=== PATIENT | male | born 1930 | race Caucasian/White ===

== ENCOUNTER 2017-05-28 14:52 | Inpatient (IN) | payer MEDICARE, OTHER ==
[2017-05-28] MEDS ORDERED: Magnesium Hydroxide 400 MG/5 ML Susp 30 ML Cup PO PRN (15:12)
[2017-05-28] MEDS ORDERED: Temazepam 15 MG Cap PO PRN (15:12)
[2017-05-28] MEDS ORDERED: Ondansetron 4 MG/2 ML SDV IV PRN (15:12)
[2017-05-28] MEDS ORDERED: Enoxaparin 30 MG/0.3 ML Syringe SUBCUT SCH (15:15)
[2017-05-28] MEDS ORDERED: LEVALBUTEROL INH PRN (15:45)
[2017-05-28 15:56] LABS: CHLORIDE,CL 102 mEq/L (98-106); SODIUM,NA 139 mEq/L (136-145)
[2017-05-28] MEDS: Sodium Chloride 0.9% 1,000 ML IV SCH ×2 (16:47→23:00)
[2017-05-28] MEDS: LATANOPROST 0.005% EYEBOTH SCH (19:37)
[2017-05-28] MEDS: cefTRIAXone 1 GM Vial IVPUSH SCH (19:38)
[2017-05-28] MEDS ORDERED: Sodium Chloride 0.9% 1,000 ML ONE (23:14)
[2017-05-29] MEDS ORDERED: AMLODIPINE 5 MG PO SCH (08:00)
[2017-05-29] MEDS ORDERED: ASPIRIN 81 MG TAB **PTOM PO SCH (08:00)
[2017-05-29] MEDS ORDERED: ATENOLOL 25 MG PO SCH (08:00)
[2017-05-29] MEDS ORDERED: LOSARTAN 50 MG PO SCH (08:00)
--- NOTE | 2017-05-29 08:53 | PCM.PN ---
- General Info Date of Service: 05/29/17 Admission Dx/Problem (Free Text): Acute Renal Insufficiency Bladder Outlet Obstruction Functional Status: Reports: Pain Controlled, Tolerating Diet, Ambulating, New Symptoms (gross hematuria) - Review of Systems General: Reports: Weakness, Fatigue. Denies: Fever, Chills HEENT: Reports: No Symptoms Pulmonary: Denies: Shortness of Breath, Pleuritic Chest Pain, Cough, Sputum, Hemoptysis, Wheezing Cardiovascular: Reports: Dyspnea on Exertion, Edema. Denies: Chest Pain, Lightheadedness Gastrointestinal: Reports: Abdominal Pain (RLQ), Decreased Appetite. Denies: Constipation, Diarrhea, Nausea, Vomiting Genitourinary: Reports: Hematuria, Retention Neurological: Reports: No Symptoms Psychiatric: Reports: No Symptoms - Patient Data Vitals - Most Recent: Last Vital Signs Temp 98.4 F 05/29/17 08:00 Pulse 59 L 05/29/17 08:00 Resp 20 05/29/17 08:00 BP 122/56 L 05/29/17 08:00 Pulse Ox 93 L 05/29/17 08:00 Weight - Most Recent: 171 lb 1.6 oz I&O - Last 24 Hours: Intake & Output 05/28/17 05/29/17 05/29/17 22:59 06:59 14:59 Intake Total 933 Balance 933 Lab Results Last 24 Hours: Laboratory Results - last 24 hr 05/28/17 05/28/17 05/28/17 Range/Units 15:12 15:30 15:30 WBC 23.4 H* (5.0-10.0) 10^3/uL RBC 3.89 L (4.50-6.00) 10^6/uL Hgb 12.0 L (14.0-18.0) g/dL Hct 36.5 L (40.0-54.0) % MCV 93.8 (82.0-94.0) fL MCH 30.8 (27.0-32.0) pg MCHC 32.9 L (33.0-38.0) g/dL RDW Coeff of Yeni 14.9 (11.0-15.0) % Plt Count 77 L (150-400) 10^3/uL Neut % (Auto) 35.9 (35-85) % Lymph % (Auto) 60.9 H (10-55) % Kane % (Auto) 3.2 (0-16) % Eos % (Auto) 0 (0-5) % Baso % (Auto) 0 (0-3) % Neut # (Auto) 8.39 H (1.80-7.00) 10^3/uL Lymph # (Auto) 14.24 H (1.00-4.80) 10^3/uL Kane # (Auto) 0.75 (0.00-0.80) 10^3/uL Eos # (Auto) 0.00 (0.00-0.45) 10^3/uL Baso # (Auto) 0.01 10^3/uL D-Dimer, Quantitative 68.4 H (0.00-0.50) Sodium 139 (136-145) mEq/L Potassium 3.5 (3.5-5.0) mEq/L Chloride 102 (98-106) mEq/L Carbon Dioxide 24 (21-32) mmol/L BUN 70 H D (7-18) mg/dL Creatinine 3.5 H* D (0.7-1.3) mg/dL Est Cr Clr Drug Dosing TNP Estimated GFR (MDRD) 17 L (>=60) mL/min Glucose 175 H D (75-99) mg/dL Calcium 9.1 (8.4-10.1) mg/dL Magnesium 2.6 H (1.8-2.4) mg/dL Total Bilirubin 1.1 H (0.0-1.0) mg/dL AST 32 (15-37) U/L ALT 21 (12-78) U/L Alkaline Phosphatase 93 (46-116) U/L Troponin I 0.024 (0.00-0.06) ng/mL C-Reactive Protein 16.1 H (0.2-0.8) mg/dL NT-Pro-B Natriuret Pep 3546 H (0-1000) pg/mL Total Protein 6.3 L (6.4-8.2) g/dL Albumin 3.3 L (3.4-5.0) g/dL TSH, Ultra Sensitive 1.02 (0.36-5.60) uIU/mL Urine Color (YELLOW) Urine Appearance (CLEAR) Urine pH (4.5-8.0) Ur Specific [place] (1.003-1.020) Urine Protein (NEGATIVE) mg/dL Urine Glucose (UA) (NEGATIVE) mg/dL Urine Ketones (NEGATIVE) mg/dL Urine Occult Blood (NEGATIVE) Urine Nitrite (NEGATIVE) Urine Bilirubin (NEGATIVE) Urine Urobilinogen (0.2-1.0) EU/dL Ur Leukocyte Esterase (NEGATIVE) Urine RBC (0-5) /HPF Urine WBC (0-5) /HPF Amorphous Sediment (NOT SEEN) /HPF Urine Mucus (NOT SEEN) /HPF 05/28/17 05/29/17 05/29/17 Range/Units 17:41 06:00 07:00 WBC 15.9 H (5.0-10.0) 10^3/uL RBC 3.39 L (4.50-6.00) 10^6/uL Hgb 10.4 L (14.0-18.0) g/dL Hct 32.1 L (40.0-54.0) % MCV 94.7 H (82.0-94.0) fL MCH 30.7 (27.0-32.0) pg MCHC 32.4 L (33.0-38.0) g/dL RDW Coeff of Yeni 14.8 (11.0-15.0) % Plt Count 71 L (150-400) 10^3/uL Neut % (Auto) 39.6 (35-85) % Lymph % (Auto) 57.1 H (10-55) % Kane % (Auto) 3.3 (0-16) % Eos % (Auto) 0 (0-5) % Baso % (Auto) 0 (0-3) % Neut # (Auto) 6.28 (1.80-7.00) 10^3/uL Lymph # (Auto) 9.05 H (1.00-4.80) 10^3/uL Kane # (Auto) 0.53 (0.00-0.80) 10^3/uL Eos # (Auto) 0.00 (0.00-0.45) 10^3/uL Baso # (Auto) 0.00 10^3/uL D-Dimer, Quantitative (0.00-0.50) Sodium 140 (136-145) mEq/L Potassium 3.1 L (3.5-5.0) mEq/L Chloride 106 (98-106) mEq/L Carbon Dioxide 23 (21-32) mmol/L BUN 72 H* (7-18) mg/dL Creatinine 3.2 H* (0.7-1.3) mg/dL Est Cr Clr Drug Dosing 14.92 Estimated GFR (MDRD) 18 L (>=60) mL/min Glucose 139 H (75-99) mg/dL Calcium 8.2 L (8.4-10.1) mg/dL Magnesium (1.8-2.4) mg/dL Total Bilirubin (0.0-1.0) mg/dL AST (15-37) U/L ALT (12-78) U/L Alkaline Phosphatase (46-116) U/L Troponin I (0.00-0.06) ng/mL C-Reactive Protein 15.4 H (0.2-0.8) mg/dL NT-Pro-B Natriuret Pep (0-1000) pg/mL Total Protein (6.4-8.2) g/dL Albumin (3.4-5.0) g/dL TSH, Ultra Sensitive (0.36-5.60) uIU/mL Urine Color Dark yellow (YELLOW) Urine Appearance Clear (CLEAR) Urine pH 5.0 (4.5-8.0) Ur Specific [place] 1.020 (1.003-1.020) Urine Protein Trace H (NEGATIVE) mg/dL Urine Glucose (UA) Negative (NEGATIVE) mg/dL Urine Ketones Negative (NEGATIVE) mg/dL Urine Occult Blood Large H (NEGATIVE) Urine Nitrite Negative (NEGATIVE) Urine Bilirubin Negative (NEGATIVE) Urine Urobilinogen 0.2 (0.2-1.0) EU/dL Ur Leukocyte Esterase Negative (NEGATIVE) Urine RBC 30-40 H (0-5) /HPF Urine WBC Not seen (0-5) /HPF Amorphous Sediment Few H (NOT SEEN) /HPF Urine Mucus Few H (NOT SEEN) /HPF Med Orders - Current: Current Medications Acetaminophen (Tylenol) 650 mg PO Q4H PRN PRN Reason: Pain (Mild 1-3)/fever Amlodipine Besylate (Norvasc) 5 mg PO DAILY [facility] Aspirin (Halfprin) 81 mg PO DAILY ÁNGELA Atenolol (Tenormin) 25 mg PO DAILY [facility] Ceftriaxone Sodium (Rocephin) 1 gm IVPUSH Q24H ÁNGELA Last Admin: 05/28/17 19:38 Dose: 1 gm Potassium Chloride/Sodium Chloride (1/2 Ns With 20 Meq Kcl) 1,000 mls @ 100 mls /hr IV ASDIRECTED [facility] Losartan Potassium (Cozaar) 50 mg PO DAILY [facility] Magnesium Hydroxide (Milk Of Magnesia) 30 ml PO Q12H PRN PRN Reason: Constipation Ondansetron HCl (Zofran) 4 mg IV Q6H PRN PRN Reason: Nausea/Vomiting Latanoprost Opht 0. (005% Laurie Ptom) 0 each EYEBOTH BEDTIME [facility] Last Admin: 05/28/17 19:37 Dose: 1 each Levalbuterol 45 Mcg/ (Act Ptom) 2 each INH Q4H PRN PRN Reason: SHORTNESS OF BREATH Temazepam (Restoril) 15 mg PO BEDTIME PRN PRN Reason: Sleep Discontinued Medications Enoxaparin Sodium (Lovenox) 30 mg SUBCUT Q24H [facility] Last Admin: 05/28/17 19:23 Dose: Not Given Sodium Chloride (Normal Saline) 1,000 mls @ 150 mls/hr IV STAT [facility] Stop: 05/29/17 22:54 Last Admin: 05/28/17 23:00 Dose: 150 mls/hr Sodium Chloride (Normal Saline) Confirm Administered Dose 1,000 mls @ as directed .ROUTE .STK-MED ONE Stop: 05/28/17 23:15 Last Admin: 05/28/17 23:42 Dose: Not Given Amlodipine 5 Mg Tab (Ptom) 1 each PO DAILY [facility] Aspirin 81 Mg Tab (Ptom) 1 each PO DAILY [facility] Atenolol 25 Mg Tab * (*Ptom) 1 each PO DAILY [facility] Losartan 50 Mg Tab * (*Ptom) 50 each PO DAILY ÁNGELA - Exam Quality Assessment: Urine Catheter General: Alert, Oriented, No Acute Distress Neck: Supple Lungs: Clear to Auscultation, Normal Respiratory Effort Cardiovascular: Regular Rate, Regular Rhythm GI/Abdominal Exam: Normal Bowel Sounds, Soft, Tender (bilateral lower quadrants) . No: Guarding, Rigid, Rebound Back Exam: Normal Inspection, Full Range of Motion. No: CVA Tenderness (L), CVA Tenderness (R) Extremities: Normal Range of Motion, Non-Tender, Normal Capillary Refill, Pedal Edema Skin: Warm, Dry, Intact Neurological: No New Focal Deficit Psy/Mental Status: Alert, Normal Affect, Normal Mood - Problem List & Annotations (1) Bladder outlet obstruction SNOMED Code(s): 776035903 Code(s): N32.0 - BLADDER-NECK OBSTRUCTION Status: Acute Current Visit: Yes (2) Generalized weakness SNOMED Code(s): 03542315 Code(s): R53.1 - WEAKNESS Status: Acute Current Visit: Yes (3) Acute renal insufficiency SNOMED Code(s): 565247131 Code(s): N28.9 - DISORDER OF KIDNEY AND URETER, UNSPECIFIED Status: Acute Current Visit: Yes (4) Gross hematuria SNOMED Code(s): 041270587 Code(s): R31.0 - GROSS HEMATURIA Status: Acute Current Visit: Yes (5) Palliative care patient SNOMED Code(s): 147035781 Code(s): Z51.5 - ENCOUNTER FOR PALLIATIVE CARE Status: Acute Current Visit: Yes - Problem List Review Problem List Initiated/Reviewed/Updated: Yes - My Orders Last 24 Hours: My Active Orders 05/28/17 15:12 Oxygen Therapy [RC] .PRN Up With Assistance [RC] .PRN Vital Signs [RC] 0000,0400,0800,1200,1600,2000 PT Evaluation and Treatment [CONS] Routine Chest 2V [CR] Routine Acetaminophen [Tylenol] 650 mg PO Q4H PRN Magnesium Hydroxide [Milk of Magnesia] 30 ml PO Q12H PRN Ondansetron [Zofran] 4 mg IV Q6H PRN Temazepam [Restoril] 15 mg PO BEDTIME PRN Resuscitation Status Routine 05/28/17 15:15 Intake and Output [RC] .PRN 05/28/17 15:45 Patient's Own Medication [Ptom] 2 each INH Q4H PRN 05/28/17 16:11 Patient Status [ADT] Routine 05/28/17 19:00 cefTRIAXone [Rocephin] 1 gm IVPUSH Q24H 05/28/17 20:00 Patient's Own Medication [Ptom] 0 each EYEBOTH BEDTIME 05/28/17 Dinner Regular Diet [DIET] 05/29/17 08:00 Renal Comp [US] Stat Aspirin [Halfprin] 81 mg PO DAILY Atenolol [Tenormin] 25 mg PO DAILY Losartan [Cozaar] 50 mg PO DAILY amLODIPine [Norvasc] 5 mg PO DAILY 05/29/17 08:26 Abdomen Comp [US] Stat 05/29/17 08:30 Sodium Chloride 0.45% with KCl [1/2 NS with 20 mEq KCl] 1,000 ml IV ASDIRECTED 05/30/17 06:00 BMP [BASIC METABOLIC PANEL,BMP] [CHEM] DAILY C-REACTIVE PROTEIN [CHEM] DAILY CBC WITH AUTO DIFF [HEME] DAILY 05/31/17 06:00 BMP [BASIC METABOLIC PANEL,BMP] [CHEM] DAILY C-REACTIVE PROTEIN [CHEM] DAILY CBC WITH AUTO DIFF [HEME] DAILY 06/01/17 06:00 BMP [BASIC METABOLIC PANEL,BMP] [CHEM] DAILY C-REACTIVE PROTEIN [CHEM] DAILY CBC WITH AUTO DIFF [HEME] DAILY - Plan Plan:: 05/29/2017 Patient had some issues with urinary retention overnight. Howard catheter was placed, with return of 3,100 mL of urine. Throughout the night patient had increased gross hematuria. I suspect this is related to distension of his bladder. Did have some RBCs on UA, however this was a catheterized sample. Creatinine down to 3.2 from 3.5 yesterday. K decreased to 3.1 today. Will switch IV fluids to 0.45% NS with 20 meQ K and decrease rate to 100 mL/hr. WBC decreased from 23.4 to 15.9. Was started on Rocephin yesterday for suspected UTI. However, when urine sample was able to be obtained via straight cath, UA was negative. Patient had significantly elevated D-Dimer (64.4), however we are unable to do Chest CTA to rule out PE due to elevated creatinine. Patient is not short of breath and has no chest pain. Will get complete abdominal US to rule out urinary obstruction/hydronephrosis, appendicitis, and cholecystitis. Patient does have slight RLQ abdominal tenderness. Unable to get adequate visualization with US, so CT abd/pelvis was ordered showing pooled blood vs. mass in right renal pelvis, as well as bladder diverticula and large stone. Patient's pro-BNP elevated to 3,546. He also has a heart murmur. Will get echo today as well. Discharge inappropriate at this time.
--- NOTE | 2017-05-29 11:00 | PN ---
DATE: 05/29/2017 Rolando Coy was admitted yesterday with confusion, high white count, no pain whatsoever. He had acute urinary retention requiring catheter insertion. Maria Guadalupe, nurse practitioner is following him. I agree with all her treatment and we will continue to watch his renal function and ultrasound the abdomen. JASMIN/REINA /[id number]
--- NOTE | 2017-05-29 11:00 | PN ---
DATE: 05/29/2017 S: Rolando Coy came in confused yesterday with a high white count. Urine is clear. O: NECK: Supple. CHEST: Occasional wheeze. CARDIAC: Sounds good. ABDOMEN: Soft. Little tender in right lower quadrant. ASSESSMENT: ABDOMINAL PAIN, BRONCHIOLITIS, AND ACUTE RENAL INSUFFICIENCY. P: Continue IV fluids. JASMIN/REINA /[id number]
[2017-05-29] MEDS: Sodium Chloride 0.45% with KCl 1,000 ML IV SCH ×2 (11:11→20:59)
[2017-05-29] MEDS: amLODIPine 2.5 MG Tab PO SCH (11:15)
[2017-05-29] MEDS: Aspirin 81 MG Tab.EC PO SCH (11:20)
[2017-05-29] MEDS: Losartan 25 MG Tab PO SCH (11:20)
[2017-05-29] MEDS: Atenolol 25 MG Tab PO SCH (11:21)
[2017-05-29] MEDS: cefTRIAXone 1 GM Vial IVPUSH SCH (19:42)
[2017-05-29] MEDS: LATANOPROST 0.005% EYEBOTH SCH (20:05)
[2017-05-30] MEDS: Acetaminophen 325 MG Tab PO PRN (00:16)
[2017-05-30] MEDS: Sodium Chloride 0.45% with KCl 1,000 ML IV SCH ×3 (06:49→17:25)
--- NOTE | 2017-05-30 07:56 | PCM.PN ---
- General Info Date of Service: 05/30/17 Admission Dx/Problem (Free Text): Acute Renal Insufficiency Bladder Outlet Obstruction Subjective Update: Patient reports he is doing well today. Does continue to feel very weak. He has not been ambulating much outside of his room due to the weakness. Hematuria is starting to clear. Has had good urine output from his clemente catheter. He does continue to report some lower abdominal pain. Continues to report decreased appetite, slightly improved since yesterday. Functional Status: Reports: Pain Controlled, Tolerating Diet, Ambulating, Urinating (clemente catheter, hematuria). Denies: New Symptoms - Review of Systems General: Reports: Weakness, Fatigue, Appetite (decreased). Denies: Fever, Chills Pulmonary: Denies: Shortness of Breath, Cough, Sputum Cardiovascular: Reports: Dyspnea on Exertion. Denies: Chest Pain, Edema, Lightheadedness Gastrointestinal: Reports: Abdominal Pain (lower), Decreased Appetite, Flatus. Denies: Constipation, Diarrhea, Hematochezia, Melena, Nausea, Vomiting Genitourinary: Reports: Retention (resolved with clemente), Other (clemente catheter) . Denies: Dysuria, Frequency, Urgency Musculoskeletal: Reports: No Symptoms Neurological: Reports: No Symptoms - Patient Data Vitals - Most Recent: Last Vital Signs Temp 97.8 F 05/30/17 07:29 Pulse 51 L 05/30/17 07:29 Resp 18 05/30/17 07:29 BP 117/54 L 05/30/17 07:29 Pulse Ox 92 L 05/30/17 07:29 Weight - Most Recent: 171 lb 1.6 oz I&O - Last 24 Hours: Intake & Output 05/29/17 05/30/17 05/30/17 22:59 06:59 14:59 Intake Total 980 983 Output Total 1400 800 Balance -420 183 Lab Results Last 24 Hours: Laboratory Results - last 24 hr 05/29/17 05/30/17 Range/Units 06:00 06:55 Sodium 140 143 (136-145) mEq/L Potassium 3.1 L 3.4 L (3.5-5.0) mEq/L Chloride 106 109 H (98-106) mEq/L Carbon Dioxide 23 25 (21-32) mmol/L BUN 72 H* 63 H (7-18) mg/dL Creatinine 3.2 H* 1.7 H (0.7-1.3) mg/dL Est Cr Clr Drug Dosing 14.92 28.08 mL/min Estimated GFR (MDRD) 18 L 38 L (>=60) mL/min Glucose 139 H 108 H (75-99) mg/dL Calcium 8.2 L 7.9 L (8.4-10.1) mg/dL Magnesium 2.2 (1.8-2.4) mg/dL C-Reactive Protein 15.4 H 14.3 H (0.2-0.8) mg/dL Med Orders - Current: Current Medications Acetaminophen (Tylenol) 650 mg PO Q4H PRN PRN Reason: Pain (Mild 1-3)/fever Last Admin: 05/30/17 00:16 Dose: 650 mg Amlodipine Besylate (Norvasc) 5 mg PO DAILY [facility] Last Admin: 05/29/17 11:15 Dose: 5 mg Aspirin (Halfprin) 81 mg PO DAILY [facility] Last Admin: 05/29/17 11:20 Dose: 81 mg Atenolol (Tenormin) 25 mg PO DAILY [facility] Last Admin: 05/29/17 11:21 Dose: 25 mg Ceftriaxone Sodium (Rocephin) 1 gm IVPUSH Q24H [facility] Last Admin: 05/29/17 19:42 Dose: 1 gm Potassium Chloride/Sodium Chloride (1/2 Ns With 20 Meq Kcl) 1,000 mls @ 100 mls /hr IV ASDIRECTED [facility] Last Admin: 05/30/17 06:49 Dose: 100 mls/hr Losartan Potassium (Cozaar) 50 mg PO DAILY [facility] Last Admin: 05/29/17 11:20 Dose: 50 mg Magnesium Hydroxide (Milk Of Magnesia) 30 ml PO Q12H PRN PRN Reason: Constipation Ondansetron HCl (Zofran) 4 mg IV Q6H PRN PRN Reason: Nausea/Vomiting Latanoprost Opht 0. (005% Laurie Ptom) 0 each EYEBOTH BEDTIME [facility] Last Admin: 05/29/17 20:05 Dose: 1 each Levalbuterol 45 Mcg/ (Act Ptom) 2 each INH Q4H PRN PRN Reason: SHORTNESS OF BREATH Temazepam (Restoril) 15 mg PO BEDTIME PRN PRN Reason: Sleep Discontinued Medications Enoxaparin Sodium (Lovenox) 30 mg SUBCUT Q24H [facility] Last Admin: 05/28/17 19:23 Dose: Not Given Sodium Chloride (Normal Saline) 1,000 mls @ 150 mls/hr IV STAT ÁNGELA Stop: 05/29/17 22:54 Last Admin: 05/28/17 23:00 Dose: 150 mls/hr Sodium Chloride (Normal Saline) Confirm Administered Dose 1,000 mls @ as directed .ROUTE .STK-MED ONE Stop: 05/28/17 23:15 Last Admin: 05/28/17 23:42 Dose: Not Given Amlodipine 5 Mg Tab (Ptom) 1 each PO DAILY ÁNGELA Aspirin 81 Mg Tab (Ptom) 1 each PO DAILY ÁNGLEA Atenolol 25 Mg Tab * (*Ptom) 1 each PO DAILY ÁNGELA Losartan 50 Mg Tab * (*Ptom) 50 each PO DAILY ÁNGELA - Exam Quality Assessment: Urine Catheter General: Alert, Oriented Neck: Supple Lungs: Normal Respiratory Effort, Decreased Breath Sounds. No: Crackles Cardiovascular: Regular Rate, Regular Rhythm GI/Abdominal Exam: Normal Bowel Sounds, Soft, No Distention, Tender (BLE) Back Exam: Normal Inspection, Full Range of Motion Extremities: Normal Inspection, Normal Range of Motion, Non-Tender, Normal Capillary Refill, Pedal Edema Neurological: No New Focal Deficit Psy/Mental Status: Alert, Normal Affect, Normal Mood - Problem List & Annotations (1) Bladder outlet obstruction SNOMED Code(s): 190926121 Code(s): N32.0 - BLADDER-NECK OBSTRUCTION Status: Acute Current Visit: Yes (2) Generalized weakness SNOMED Code(s): 37898886 Code(s): R53.1 - WEAKNESS Status: Acute Current Visit: Yes (3) Acute renal insufficiency SNOMED Code(s): 508936148 Code(s): N28.9 - DISORDER OF KIDNEY AND URETER, UNSPECIFIED Status: Acute Current Visit: Yes (4) Gross hematuria SNOMED Code(s): 471781897 Code(s): R31.0 - GROSS HEMATURIA Status: Acute Current Visit: Yes (5) Palliative care patient SNOMED Code(s): 258446472 Code(s): Z51.5 - ENCOUNTER FOR PALLIATIVE CARE Status: Acute Current Visit: Yes (6) Mesenteric adenitis SNOMED Code(s): 17966247 Code(s): I88.0 - NONSPECIFIC MESENTERIC LYMPHADENITIS Status: Acute Current Visit: Yes (7) Ileus SNOMED Code(s): 576011188 Code(s): K56.7 - ILEUS, UNSPECIFIED Status: Acute Current Visit: Yes - Problem List Review Problem List Initiated/Reviewed/Updated: Yes - My Orders Last 24 Hours: My Active Orders 05/29/17 08:00 Aspirin [Halfprin] 81 mg PO DAILY Atenolol [Tenormin] 25 mg PO DAILY Losartan [Cozaar] 50 mg PO DAILY amLODIPine [Norvasc] 5 mg PO DAILY 05/29/17 08:26 Abdomen Comp [US] Stat 05/29/17 08:30 Sodium Chloride 0.45% with KCl [1/2 NS with 20 mEq KCl] 1,000 ml IV ASDIRECTED 05/29/17 09:11 Echo Comp wo Cont [US] Routine 05/29/17 10:06 Abdomen Pelvis wo Cont [CT] Routine 05/30/17 06:55 CBC WITH AUTO DIFF [HEME] DAILY 05/31/17 06:00 BMP [BASIC METABOLIC PANEL,BMP] [CHEM] DAILY C-REACTIVE PROTEIN [CHEM] DAILY CBC WITH AUTO DIFF [HEME] DAILY 06/01/17 06:00 BMP [BASIC METABOLIC PANEL,BMP] [CHEM] DAILY C-REACTIVE PROTEIN [CHEM] DAILY CBC WITH AUTO DIFF [HEME] DAILY - Plan Plan:: 05/29/2017 Patient had some issues with urinary retention overnight. Clemente catheter was placed, with return of 3,100 mL of urine. Throughout the night patient had increased gross hematuria. I suspect this is related to distension of his bladder. Did have some RBCs on UA, however this was a catheterized sample. Creatinine down to 3.2 from 3.5 yesterday. K decreased to 3.1 today. Will switch IV fluids to 0.45% NS with 20 meQ K and decrease rate to 100 mL/hr. WBC decreased from 23.4 to 15.9. Was started on Rocephin yesterday for suspected UTI. However, when urine sample was able to be obtained via straight cath, UA was negative. Patient had significantly elevated D-Dimer (64.4), however we are unable to do Chest CTA to rule out PE due to elevated creatinine. Patient is not short of breath and has no chest pain. Will get complete abdominal US to rule out urinary obstruction/hydronephrosis, appendicitis, and cholecystitis. Patient does have slight RLQ abdominal tenderness. Unable to get adequate visualization with US, so CT abd/pelvis was ordered showing pooled blood vs. mass in right renal pelvis, as well as bladder diverticula and large stone. Patient's pro-BNP elevated to 3,546. He also has a heart murmur. Will get echo today as well. Discharge inappropriate at this time. 05/30/2017 Clemente catheter draining well. Urine starting to clear more. Creatinine down to 1.7. Will continue IVF until creatinine normalizes. CT abdomen/pelvis showed probable ileus, expanded renal pelvis with blood pooling on right kidney, bladder diverticula with large stone, and mild-moderate hydronephrosis of bilateral kidneys. Suspect ileus secondary to mesenteric adenitis. Patient tolerating diet. No nausea/vomiting. Will continue IV rocephin. WBC trending down. Also suspect D-dimer is significantly elevated due to blood pooling on kidney. Awaiting echo results. Encourage ambulation and activity. PT to continue for strengthening.
[2017-05-30] MEDS: Losartan 25 MG Tab PO SCH (08:10)
[2017-05-30] MEDS: amLODIPine 2.5 MG Tab PO SCH (08:11)
[2017-05-30] MEDS: Atenolol 25 MG Tab PO SCH (08:11)
[2017-05-30] MEDS: Aspirin 81 MG Tab.EC PO SCH (08:12)
[2017-05-30] MEDS: cefTRIAXone 1 GM Vial IVPUSH SCH (19:46)
[2017-05-30] MEDS: LATANOPROST 0.005% EYEBOTH SCH (19:55)
[2017-05-30] MEDS ORDERED: Tamsulosin 0.4 MG Cap.ER PO SCH (20:00)
[2017-05-31] MEDS: Sodium Chloride 0.45% with KCl 1,000 ML IV SCH (03:23)
[2017-05-31 07:36] LABS: CHLORIDE,CL 111 mEq/L (98-106); SODIUM,NA 142 mEq/L (136-145)
[2017-05-31] MEDS: amLODIPine 2.5 MG Tab PO SCH ×2 (08:07→08:11)
[2017-05-31] MEDS: Losartan 25 MG Tab PO SCH ×2 (08:08→08:11)
[2017-05-31] MEDS: Atenolol 25 MG Tab PO SCH ×2 (08:08→08:11)
[2017-05-31] MEDS: Aspirin 81 MG Tab.EC PO SCH ×2 (08:08→08:11)
--- NOTE | 2017-05-31 09:05 | PCM.DCSUM1 ---
Discharge Summary - Hospital Course HPI Initial Comments: Rolando is an 86 year old male who was admitted to the hospital on 05/28/2017 for leukocytosis, generalized weakness, acute renal insufficiency, and suspected bladder outlet obstruction. Patient developed urinary retention on hospitalization day 1. A clemente catheter was placed, with instantaneous return of 3,100 mL of urine. Patient developed gross hematuria. CT abd/pelvis was completed showing bilateral mild-moderate hydronephrosis, no obstruction, expanded renal pelvis bilaterally, with suspected blood pooling in right kidney , large bladder diverticula with stone, and ileus. Patient did c/o some lower abdominal discomfort. He was suspected to have ileus secondary to mesenteric adenitis. He is being treated with rocephin. WBC trended down throughout hospital stay. Kidney function improved throughout hospitalization and was normalized at time of discharge to swing bed. Hematuria was also beginning to clear. Patient was tolerating a general diet, was passing flatus. Patient continued to be very weak. He was discharged to swing bed for continued physical therapy for strengthening. - Discharge Data Discharge Date: 05/31/17 Discharge Disposition: DC/Tfer W/I Hosp To Swing Condition: Good - Discharge Diagnosis/Problem(s) (1) Bladder outlet obstruction SNOMED Code(s): 790953973 ICD Code: N32.0 - BLADDER-NECK OBSTRUCTION Status: Acute (2) Generalized weakness SNOMED Code(s): 89854699 ICD Code: R53.1 - WEAKNESS Status: Acute (3) Acute renal insufficiency SNOMED Code(s): 985356208 ICD Code: N28.9 - DISORDER OF KIDNEY AND URETER, UNSPECIFIED Status: Acute (4) Gross hematuria SNOMED Code(s): 820272954 ICD Code: R31.0 - GROSS HEMATURIA Status: Acute (5) Palliative care patient SNOMED Code(s): 613548691 ICD Code: Z51.5 - ENCOUNTER FOR PALLIATIVE CARE Status: Acute (6) Mesenteric adenitis SNOMED Code(s): 24469106 ICD Code: I88.0 - NONSPECIFIC MESENTERIC LYMPHADENITIS Status: Acute (7) Ileus SNOMED Code(s): 120383253 ICD Code: K56.7 - ILEUS, UNSPECIFIED Status: Acute - Patient Summary/Data Consults: Consultations 05/28/17 15:12 PT Evaluation and Treatment [CONS] Routine - Patient Instructions Diet: Regular Diet as Tolerated Activity: As Tolerated - Discharge Plan Home Medications: Home Meds Aspirin [Adult Low Dose Aspirin EC] 81 mg PO DAILY 05/28/17 [History] Atenolol [Atenolol] 25 mg PO DAILY 05/28/17 [History] Ergocalciferol (Vitamin D2) [Vitamin D2] 2,000 unit PO DAILY 05/28/17 [History] Latanoprost [Latanoprost] 1 drop EYEBOTH BEDTIME 05/28/17 [History] Levalbuterol Tartrate [Xopenex HFA] 2 puff INH ASDIRECTED 05/28/17 [History] Losartan Potassium 50 mg PO DAILY 05/28/17 [History] amLODIPine Besylate [Amlodipine Besylate] 5 mg PO DAILY 05/28/17 [History] - General Info Date of Service: 05/31/17 Admission Dx/Problem (Free Text: Acute Renal Insufficiency Bladder Outlet Obstruction Urinary Retention Leukocytosis Subjective Update: Patient reports he is doing well today. Does continue to feel very weak. He has not been ambulating much outside of his room due to the weakness. Hematuria is clearing, but does increase with ambulation. Has had good urine output from his clemente catheter. Reports he no longer has lower abdominal pain. Does feel his appetite is improving. Functional Status: Reports: Pain Controlled, Tolerating Diet, Ambulating, Urinating (clemente catheter). Denies: New Symptoms - Review of Systems General: Reports: Weakness, Fatigue. Denies: Fever, Chills Pulmonary: Reports: No Symptoms Cardiovascular: Reports: No Symptoms Gastrointestinal: Reports: No Symptoms. Denies: Abdominal Pain, Decreased Appetite, Diarrhea, Hematochezia, Melena, Nausea, Vomiting Genitourinary: Reports: Retention Musculoskeletal: Reports: Back Pain Neurological: Reports: Confusion (at night worse) Psychiatric: Reports: No Symptoms - Patient Data Vitals - Most Recent: Last Vital Signs Temp 98.7 F 05/31/17 08:00 Pulse 63 05/31/17 08:00 Resp 20 05/31/17 08:00 BP 146/59 H 05/31/17 08:00 Pulse Ox 92 L 05/31/17 08:00 Weight - Most Recent: 171 lb 1.6 oz I&O - Last 24 hours: Intake & Output 05/30/17 05/31/17 05/31/17 22:59 06:59 14:59 Intake Total 1000 997 Output Total 1100 1350 Balance -100 -353 Lab Results - Last 24 hrs: Laboratory Results - last 24 hr 05/31/17 05/31/17 Range/Units 07:23 07:23 WBC 10.5 H (5.0-10.0) 10^3/uL RBC 3.11 L (4.50-6.00) 10^6/uL Hgb 9.6 L (14.0-18.0) g/dL Hct 29.7 L (40.0-54.0) % MCV 95.5 H (82.0-94.0) fL MCH 30.9 (27.0-32.0) pg MCHC 32.3 L (33.0-38.0) g/dL RDW Coeff of Yeni 14.4 (11.0-15.0) % Plt Count 86 L (150-400) 10^3/uL Neut % (Auto) 24.7 L (35-85) % Lymph % (Auto) 71.7 H (10-55) % Kern % (Auto) 2.4 (0-16) % Eos % (Auto) 1.1 (0-5) % Baso % (Auto) 0.1 (0-3) % Neut # (Auto) 2.60 (1.80-7.00) 10^3/uL Lymph # (Auto) 7.54 H (1.00-4.80) 10^3/uL Kern # (Auto) 0.25 (0.00-0.80) 10^3/uL Eos # (Auto) 0.12 (0.00-0.45) 10^3/uL Baso # (Auto) 0.01 10^3/uL Sodium 142 (136-145) mEq/L Potassium 4.0 (3.5-5.0) mEq/L Chloride 111 H (98-106) mEq/L Carbon Dioxide 26 (21-32) mmol/L BUN 43 H (7-18) mg/dL Creatinine 1.1 (0.7-1.3) mg/dL Est Cr Clr Drug Dosing 43.40 mL/min Estimated GFR (MDRD) > 60 (>=60) mL/min Glucose 104 H (75-99) mg/dL Calcium 7.7 L (8.4-10.1) mg/dL C-Reactive Protein 6.8 H (0.2-0.8) mg/dL Med Orders - Current: Current Medications Acetaminophen (Tylenol) 650 mg PO Q4H PRN PRN Reason: Pain (Mild 1-3)/fever Last Admin: 05/30/17 00:16 Dose: 650 mg Amlodipine Besylate (Norvasc) 5 mg PO DAILY [facility] Last Admin: 05/31/17 08:11 Dose: 5 mg Aspirin (Halfprin) 81 mg PO DAILY [facility] Last Admin: 05/31/17 08:11 Dose: 81 mg Atenolol (Tenormin) 25 mg PO DAILY [facility] Last Admin: 05/31/17 08:11 Dose: 25 mg Ceftriaxone Sodium (Rocephin) 1 gm IVPUSH Q24H [facility] Last Admin: 05/30/17 19:46 Dose: 1 gm Losartan Potassium (Cozaar) 50 mg PO DAILY [facility] Last Admin: 05/31/17 08:11 Dose: 50 mg Magnesium Hydroxide (Milk Of Magnesia) 30 ml PO Q12H PRN PRN Reason: Constipation Ondansetron HCl (Zofran) 4 mg IV Q6H PRN PRN Reason: Nausea/Vomiting Latanoprost Opht 0. (005% Laurie Ptom) 0 each EYEBOTH BEDTIME [facility] Last Admin: 05/30/17 19:55 Dose: 1 each Levalbuterol 45 Mcg/ (Act Ptom) 2 each INH Q4H PRN PRN Reason: SHORTNESS OF BREATH Tamsulosin HCl (Flomax) 0.4 mg PO BEDTIME [facility] Last Admin: 05/30/17 19:55 Dose: 0.4 mg Temazepam (Restoril) 15 mg PO BEDTIME PRN PRN Reason: Sleep Discontinued Medications Enoxaparin Sodium (Lovenox) 30 mg SUBCUT Q24H [facility] Last Admin: 05/28/17 19:23 Dose: Not Given Sodium Chloride (Normal Saline) 1,000 mls @ 150 mls/hr IV STAT [facility] Stop: 05/29/17 22:54 Last Admin: 05/28/17 23:00 Dose: 150 mls/hr Sodium Chloride (Normal Saline) Confirm Administered Dose 1,000 mls @ as directed .ROUTE .STK-MED ONE Stop: 05/28/17 23:15 Last Admin: 05/28/17 23:42 Dose: Not Given Potassium Chloride/Sodium Chloride (1/2 Ns With 20 Meq Kcl) 1,000 mls @ 100 mls /hr IV ASDIRECTED ÁNGELA Last Admin: 05/31/17 03:23 Dose: 100 mls/hr Amlodipine 5 Mg Tab (Ptom) 1 each PO DAILY ÁNGELA Aspirin 81 Mg Tab (Ptom) 1 each PO DAILY ÁNGELA Atenolol 25 Mg Tab * (*Ptom) 1 each PO DAILY ÁNGELA Losartan 50 Mg Tab * (*Ptom) 50 each PO DAILY ÁNGELA - Exam Quality Assessment: Reports: Urine Catheter General: Reports: Alert, Oriented Neck: Reports: Supple Lungs: Reports: Clear to Auscultation, Normal Respiratory Effort, Decreased Breath Sounds Cardiovascular: Reports: Regular Rate, Regular Rhythm GI/Abdominal Exam: Normal Bowel Sounds, Soft, Non-Tender, No Organomegaly, No Distention, No Abnormal Bruit, No Mass, Pelvis Stable Back Exam: Reports: Normal Inspection, Full Range of Motion Extremities: Normal Range of Motion, Normal Capillary Refill, Pedal Edema Skin: Reports: Warm, Dry, Intact Neurological: Reports: No New Focal Deficit Psy/Mental Status: Reports: Alert, Normal Affect, Normal Mood *Q Meaningful Use (DIS) - VTE *Q VTE Criteria *Q: - Stroke *Q Stroke Criteria *Q: - AMI *Q AMI Criteria *Q:
[2017-05-31] MEDS: Acetaminophen 325 MG Tab PO PRN (10:40)
[2017-05-31] MEDS ORDERED: cefTRIAXone 1 GM Vial IVPUSH SCH (20:00)
== END 2017-05-31 10:30 | disposition swing bed (61) | DRG 699 ==
LOC: UNDOADMOB 14:52 → CC.MS 14:52 → OBSVTOIN 16:11 → CC.MS 16:11
PROVIDERS: ADMIT Nurse Practitioner Family; ATTEND General Practice
DX: N32.0 Bladder-neck obstruction (principal); K56.7 Ileus, unspecified; N13.30 Unspecified hydronephrosis; I10 Essential (primary) hypertension; R79.89 Other specified abnormal findings of blood chemistry; D72.829 Elevated white blood cell count, unspecified; R53.1 Weakness; N28.9 Disorder of kidney and ureter, unspecified; R31.0 Gross hematuria; Z51.5 Encounter for palliative care; I88.0 Nonspecific mesenteric lymphadenitis; Z88.0 Allergy status to penicillin; Z79.82 Long term (current) use of aspirin; Z79.899 Other long term (current) drug therapy
CPT/HCPCS: 36415; 71046; 74176; 76700; 80048; 80053; 81001; 83735; 83880; 84443; 84484; 85025; 85379; 86140; 93005; 93306; 97110-GP; 97161-GP; A9270-GY; J0696; J3480; J7030

== ENCOUNTER 2017-05-31 10:30 | Inpatient (IN) | payer MEDICARE, OTHER ==
[2017-05-31] MEDS ORDERED: Ondansetron 4 MG/2 ML SDV IV PRN (11:22)
[2017-05-31] MEDS ORDERED: Temazepam 15 MG Cap PO PRN (11:22)
[2017-05-31] MEDS ORDERED: Magnesium Hydroxide 400 MG/5 ML Susp 30 ML Cup PO PRN (11:22)
[2017-05-31] MEDS ORDERED: LEVALBUTEROL INH PRN (11:22)
[2017-05-31] MEDS: Tamsulosin 0.4 MG Cap.ER PO SCH (19:53)
[2017-05-31] MEDS: LATANOPROST 0.005% EYEBOTH SCH (19:54)
[2017-05-31] MEDS: cefTRIAXone 1 GM Vial IVPUSH SCH (19:55)
[2017-06-01 07:14] LABS: CHLORIDE,CL 110 mEq/L (98-106); SODIUM,NA 143 mEq/L (136-145)
[2017-06-01] MEDS: amLODIPine 2.5 MG Tab PO SCH (08:22)
[2017-06-01] MEDS: Losartan 25 MG Tab PO SCH (08:22)
[2017-06-01] MEDS: Aspirin 81 MG Tab.EC PO SCH (08:22)
[2017-06-01] MEDS: Atenolol 25 MG Tab PO SCH (08:22)
[2017-06-01] MEDS: cefTRIAXone 1 GM Vial IVPUSH SCH (20:11)
[2017-06-01] MEDS: Tamsulosin 0.4 MG Cap.ER PO SCH (20:11)
[2017-06-01] MEDS: LATANOPROST 0.005% EYEBOTH SCH (20:12)
[2017-06-02] MEDS: Aspirin 81 MG Tab.EC PO SCH (07:41)
[2017-06-02] MEDS: Atenolol 25 MG Tab PO SCH (07:41)
[2017-06-02] MEDS: amLODIPine 2.5 MG Tab PO SCH (07:41)
[2017-06-02] MEDS: Losartan 25 MG Tab PO SCH (07:41)
[2017-06-02] MEDS: Acetaminophen 325 MG Tab PO PRN (07:43)
[2017-06-02] MEDS: cefTRIAXone 1 GM Vial IVPUSH SCH (20:21)
[2017-06-02] MEDS: LATANOPROST 0.005% EYEBOTH SCH (20:21)
[2017-06-02] MEDS: Tamsulosin 0.4 MG Cap.ER PO SCH (20:21)
[2017-06-03] MEDS: Losartan 25 MG Tab PO SCH (07:33)
[2017-06-03] MEDS: Atenolol 25 MG Tab PO SCH (07:33)
[2017-06-03] MEDS: amLODIPine 2.5 MG Tab PO SCH (07:33)
[2017-06-03] MEDS: Aspirin 81 MG Tab.EC PO SCH (07:33)
[2017-06-03] MEDS: LATANOPROST 0.005% EYEBOTH SCH (19:46)
[2017-06-03] MEDS: Tamsulosin 0.4 MG Cap.ER PO SCH (19:47)
[2017-06-03] MEDS: cefTRIAXone 1 GM Vial IVPUSH SCH (19:47)
[2017-06-04] MEDS: Atenolol 25 MG Tab PO SCH (08:01)
[2017-06-04] MEDS: Aspirin 81 MG Tab.EC PO SCH (08:01)
[2017-06-04] MEDS: amLODIPine 2.5 MG Tab PO SCH (08:01)
[2017-06-04] MEDS: Losartan 25 MG Tab PO SCH (08:01)
--- NOTE | 2017-06-04 08:01 | PCM.DCSUM1 ---
Discharge Summary - Discharge Data Discharge Disposition: Home, Self-Care 01 Condition: Good - Discharge Diagnosis/Problem(s) (1) Acute renal insufficiency SNOMED Code(s): 736174030 ICD Code: N28.9 - DISORDER OF KIDNEY AND URETER, UNSPECIFIED Status: Acute Current Visit: No (2) Bladder outlet obstruction SNOMED Code(s): 677109719 ICD Code: N32.0 - BLADDER-NECK OBSTRUCTION Status: Acute Current Visit: No (3) Generalized weakness SNOMED Code(s): 01759739 ICD Code: R53.1 - WEAKNESS Status: Acute Current Visit: No (4) Gross hematuria SNOMED Code(s): 509834021 ICD Code: R31.0 - GROSS HEMATURIA Status: Acute Current Visit: No (5) Ileus SNOMED Code(s): 887888960 ICD Code: K56.7 - ILEUS, UNSPECIFIED Status: Acute Current Visit: No (6) Mesenteric adenitis SNOMED Code(s): 47941059 ICD Code: I88.0 - NONSPECIFIC MESENTERIC LYMPHADENITIS Status: Acute Current Visit: No (7) Palliative care patient SNOMED Code(s): 598673787 ICD Code: Z51.5 - ENCOUNTER FOR PALLIATIVE CARE Status: Acute Current Visit: No - Patient Summary/Data Consults: Consultations 05/31/17 11:22 PT Evaluation and Treatment [CONS] Routine - Patient Instructions Diet: Usual Diet as Tolerated Activity: As Tolerated, Elevate Extremity Notify Provider of: Fever, Increased Pain, Swelling and Redness, Drainage, Nausea and/or Vomiting - Discharge Plan Prescriptions/Med Rec: Cefuroxime Axetil [Cefuroxime] 250 mg PO BID 5 Days #10 tablet Tamsulosin [Flomax] 0.8 mg PO BEDTIME 90 Days #90 cap.er Home Medications: Home Meds Aspirin [Adult Low Dose Aspirin EC] 81 mg PO DAILY 05/28/17 [History] Atenolol 25 mg PO DAILY 05/28/17 [History] Ergocalciferol (Vitamin D2) [Vitamin D2] 2,000 unit PO DAILY 05/28/17 [History] Latanoprost 1 drop EYEBOTH BEDTIME 05/28/17 [History] Levalbuterol Tartrate [Xopenex HFA] 2 puff INH ASDIRECTED 05/28/17 [History] Losartan Potassium 50 mg PO DAILY 05/28/17 [History] amLODIPine Besylate [Amlodipine Besylate] 5 mg PO DAILY 05/28/17 [History] Cefuroxime Axetil [Cefuroxime] 250 mg PO BID 5 Days #10 tablet 06/04/17 [Rx] Tamsulosin [Flomax] 0.8 mg PO BEDTIME 90 Days #90 cap.er 06/04/17 [Rx] Patient Handouts: Acute Kidney Injury, Adult Referrals: Denny Phillips MD [Physician] - Drew Moore MD [Primary Care Provider] - - Discharge Summary/Plan Comment Discharge Summary/Plan Comment: Patient will be discharged home with home health care services. - General Info Date of Service: 06/04/17 - Patient Data Vitals - Most Recent: Last Vital Signs Temp 98.0 F 06/04/17 07:51 Pulse 63 06/04/17 07:51 Resp 16 06/04/17 07:51 BP 156/50 H 06/04/17 07:51 Pulse Ox 96 06/04/17 07:51 Weight - Most Recent: 175 lb 11.2 oz I&O - Last 24 hours: Intake & Output 06/03/17 06/04/17 06/04/17 22:59 06:59 14:59 Intake Total 893 300 Output Total 700 550 Balance 193 -250 Med Orders - Current: Current Medications Acetaminophen (Tylenol) 650 mg PO Q4H PRN PRN Reason: Pain (Mild 1-3)/fever Last Admin: 06/02/17 07:43 Dose: 650 mg Amlodipine Besylate (Norvasc) 5 mg PO DAILY [facility] Last Admin: 06/03/17 07:33 Dose: 5 mg Aspirin (Halfprin) 81 mg PO DAILY [facility] Last Admin: 06/03/17 07:33 Dose: 81 mg Atenolol (Tenormin) 25 mg PO DAILY [facility] Last Admin: 06/03/17 07:33 Dose: 25 mg Ceftriaxone Sodium (Rocephin) 1 gm IVPUSH Q24H [facility] Last Admin: 06/03/17 19:47 Dose: 1 gm Losartan Potassium (Cozaar) 50 mg PO DAILY [facility] Last Admin: 06/03/17 07:33 Dose: 50 mg Magnesium Hydroxide (Milk Of Magnesia) 30 ml PO Q12H PRN PRN Reason: Constipation Ptom Latanoprost (Opht 0.005% Laurie) 0 each EYEBOTH BEDTIME ÁNGELA Last Admin: 06/03/17 19:46 Dose: 1 each Ptom Levalbuterol 45 Mcg/Act 2 each INH Q4H PRN PRN Reason: SHORTNESS OF BREATH Ondansetron HCl (Zofran) 4 mg IV Q6H PRN PRN Reason: Nausea/Vomiting Tamsulosin HCl (Flomax) 0.4 mg PO BEDTIME ÁNGELA Last Admin: 06/03/17 19:47 Dose: 0.4 mg Temazepam (Restoril) 15 mg PO BEDTIME PRN PRN Reason: Sleep *Q Meaningful Use (DIS) - VTE *Q VTE Criteria *Q: - Stroke *Q Stroke Criteria *Q: - AMI *Q AMI Criteria *Q:
--- NOTE | 2017-06-04 18:07 | PCM.SN ---
- Free Text/Narrative Note: Discussed potential discharge today. Nursing staff attempted to remove Howard catheter. 500 mL instilled in urine. Approximately 3 hours later, patient still unable to void. Discussed with nursing if patient unable to void by 6 pm to put catheter in. Will cancel discharge plan for today. Patient continues to work with physical therapy. Continues to have some weakness. I feel it would be beneficial for patient to stay and work with physical therapy for a few more days. This will also allow nursing staff to closely monitor intake and output. Discussed with nursing staff.
[2017-06-04] MEDS: Tamsulosin 0.4 MG Cap.ER PO SCH (20:40)
[2017-06-04] MEDS: LATANOPROST 0.005% EYEBOTH SCH (20:41)
[2017-06-04] MEDS: cefTRIAXone 1 GM Vial IVPUSH SCH (20:41)
[2017-06-05] MEDS: Losartan 25 MG Tab PO SCH (07:35)
[2017-06-05] MEDS: amLODIPine 2.5 MG Tab PO SCH (07:36)
[2017-06-05] MEDS: Atenolol 25 MG Tab PO SCH (07:36)
[2017-06-05] MEDS: Aspirin 81 MG Tab.EC PO SCH (07:36)
[2017-06-05] MEDS: Tamsulosin 0.4 MG Cap.ER PO SCH (20:33)
[2017-06-05] MEDS: LATANOPROST 0.005% EYEBOTH SCH (20:33)
[2017-06-05] MEDS: cefTRIAXone 1 GM Vial IVPUSH SCH (20:33)
[2017-06-06] MEDS: amLODIPine 2.5 MG Tab PO SCH (07:33)
[2017-06-06] MEDS: Atenolol 25 MG Tab PO SCH (07:33)
[2017-06-06] MEDS: Aspirin 81 MG Tab.EC PO SCH (07:33)
[2017-06-06] MEDS: Losartan 25 MG Tab PO SCH (07:33)
[2017-06-06 07:49] LABS: CHLORIDE,CL 106 mEq/L (98-106); SODIUM,NA 143 mEq/L (136-145)
[2017-06-06] MEDS: LATANOPROST 0.005% EYEBOTH SCH (19:46)
[2017-06-06] MEDS: cefTRIAXone 1 GM Vial IVPUSH SCH (19:46)
[2017-06-06] MEDS: Tamsulosin 0.4 MG Cap.ER PO SCH (19:46)
[2017-06-07] MEDS: Losartan 25 MG Tab PO SCH (07:47)
[2017-06-07] MEDS: Atenolol 25 MG Tab PO SCH (07:47)
[2017-06-07] MEDS: amLODIPine 2.5 MG Tab PO SCH (07:47)
[2017-06-07] MEDS: Aspirin 81 MG Tab.EC PO SCH (07:47)
--- NOTE | 2017-06-07 08:52 | PCM.SN ---
- Free Text/Narrative Note: Upon chart review, saw that there was no order for patient status. Patient was discharged from acute to swing bed on 05/31/2017 at 1030 am. Order will not allow me to back date patient status order. Patient has 3+ pitting edema to BLE. Will start torsemide 20 mg PO daily. Patient remains on IV rocephin for mesenteric adenitis. Patient remains weak. Continue swing bed status for physical therapy for strengthening.
[2017-06-07] MEDS: Torsemide 20 MG Tab PO SCH (10:36)
[2017-06-07] MEDS: cefTRIAXone 1 GM Vial IVPUSH SCH (19:38)
[2017-06-07] MEDS: LATANOPROST 0.005% EYEBOTH SCH (19:38)
[2017-06-07] MEDS: Tamsulosin 0.4 MG Cap.ER PO SCH (19:38)
[2017-06-08] MEDS: Aspirin 81 MG Tab.EC PO SCH (07:50)
[2017-06-08] MEDS: Atenolol 25 MG Tab PO SCH (07:50)
[2017-06-08] MEDS: Torsemide 20 MG Tab PO SCH (07:50)
[2017-06-08] MEDS: amLODIPine 2.5 MG Tab PO SCH (07:51)
[2017-06-08] MEDS: Losartan 25 MG Tab PO SCH (07:51)
[2017-06-08 07:54] LABS: CHLORIDE,CL 105 mEq/L (98-106); SODIUM,NA 143 mEq/L (136-145)
[2017-06-08] MEDS: cefTRIAXone 1 GM Vial IVPUSH SCH (20:43)
[2017-06-08] MEDS: Tamsulosin 0.4 MG Cap.ER PO SCH (20:43)
[2017-06-08] MEDS: LATANOPROST 0.005% EYEBOTH SCH (20:43)
[2017-06-09] MEDS: Atenolol 25 MG Tab PO SCH (07:26)
[2017-06-09] MEDS: Torsemide 20 MG Tab PO SCH (07:26)
[2017-06-09] MEDS: Aspirin 81 MG Tab.EC PO SCH (07:27)
[2017-06-09] MEDS: amLODIPine 2.5 MG Tab PO SCH (07:27)
[2017-06-09] MEDS: Losartan 25 MG Tab PO SCH (07:27)
[2017-06-09] MEDS: LATANOPROST 0.005% EYEBOTH SCH (19:35)
[2017-06-09] MEDS: cefTRIAXone 1 GM Vial IVPUSH SCH (19:36)
[2017-06-09] MEDS: Tamsulosin 0.4 MG Cap.ER PO SCH (19:41)
[2017-06-10] MEDS: Acetaminophen 325 MG Tab PO PRN (07:31)
[2017-06-10] MEDS: amLODIPine 2.5 MG Tab PO SCH (07:31)
[2017-06-10] MEDS: Aspirin 81 MG Tab.EC PO SCH (07:31)
[2017-06-10] MEDS: Atenolol 25 MG Tab PO SCH (07:31)
[2017-06-10] MEDS: Losartan 25 MG Tab PO SCH (07:32)
[2017-06-10] MEDS: Torsemide 20 MG Tab PO SCH (07:32)
[2017-06-10] MEDS: Tamsulosin 0.4 MG Cap.ER PO SCH (19:27)
[2017-06-10] MEDS: LATANOPROST 0.005% EYEBOTH SCH (19:28)
[2017-06-10] MEDS: cefTRIAXone 1 GM Vial IVPUSH SCH (19:30)
[2017-06-11] MEDS: Torsemide 20 MG Tab PO SCH (07:49)
[2017-06-11] MEDS: Atenolol 25 MG Tab PO SCH (07:49)
[2017-06-11] MEDS: Aspirin 81 MG Tab.EC PO SCH (07:49)
[2017-06-11] MEDS: amLODIPine 2.5 MG Tab PO SCH (07:49)
[2017-06-11] MEDS: Losartan 25 MG Tab PO SCH (07:49)
--- NOTE | 2017-06-11 08:30 | PCM.DCSUM1 ---
Discharge Summary - Hospital Course HPI Initial Comments: Rolando is an 86 year old male who was admitted - Discharge Data Discharge Date: 06/11/17 Discharge Disposition: Home, Self-Care 01 Condition: Good - Discharge Diagnosis/Problem(s) (1) Acute renal insufficiency SNOMED Code(s): 245862194 ICD Code: N28.9 - DISORDER OF KIDNEY AND URETER, UNSPECIFIED Status: Acute Current Visit: No Problem Details: Resolved (2) Bladder outlet obstruction SNOMED Code(s): 017158801 ICD Code: N32.0 - BLADDER-NECK OBSTRUCTION Status: Acute Current Visit: No (3) Generalized weakness SNOMED Code(s): 44364325 ICD Code: R53.1 - WEAKNESS Status: Acute Current Visit: No (4) Gross hematuria SNOMED Code(s): 077273930 ICD Code: R31.0 - GROSS HEMATURIA Status: Acute Current Visit: No Problem Details: Resolved (5) Ileus SNOMED Code(s): 022728163 ICD Code: K56.7 - ILEUS, UNSPECIFIED Status: Acute Current Visit: No (6) Mesenteric adenitis SNOMED Code(s): 46247217 ICD Code: I88.0 - NONSPECIFIC MESENTERIC LYMPHADENITIS Status: Acute Current Visit: No (7) Palliative care patient SNOMED Code(s): 349520379 ICD Code: Z51.5 - ENCOUNTER FOR PALLIATIVE CARE Status: Acute Current Visit: No - Patient Summary/Data Consults: Consultations 05/31/17 11:22 PT Evaluation and Treatment [CONS] Routine - Patient Instructions Diet: Usual Diet as Tolerated Activity: As Tolerated, Elevate Extremity Notify Provider of: Fever, Increased Pain, Swelling and Redness, Drainage, Nausea and/or Vomiting - Discharge Plan Prescriptions/Med Rec: Cefuroxime Axetil [Cefuroxime] 250 mg PO BID 5 Days #10 tablet Tamsulosin [Flomax] 0.8 mg PO BEDTIME 90 Days #90 cap.er Home Medications: Home Meds Aspirin [Adult Low Dose Aspirin EC] 81 mg PO DAILY 05/28/17 [History] Atenolol 25 mg PO DAILY 05/28/17 [History] Ergocalciferol (Vitamin D2) [Vitamin D2] 2,000 unit PO DAILY 05/28/17 [History] Latanoprost 1 drop EYEBOTH BEDTIME 05/28/17 [History] Levalbuterol Tartrate [Xopenex HFA] 2 puff INH ASDIRECTED 05/28/17 [History] Losartan Potassium 50 mg PO DAILY 05/28/17 [History] amLODIPine Besylate [Amlodipine Besylate] 5 mg PO DAILY 05/28/17 [History] Cefuroxime Axetil [Cefuroxime] 250 mg PO BID 5 Days #10 tablet 06/04/17 [Rx] Tamsulosin [Flomax] 0.8 mg PO BEDTIME 90 Days #90 cap.er 06/04/17 [Rx] Patient Handouts: Acute Kidney Injury, Adult Referrals: Drew Moore MD [Primary Care Provider] - Denny Phillips MD [Physician] - - General Info Date of Service: 06/11/17 Subjective Update: Patient reports he doesn't "have any great aches or pains." He reports he is feeling well. Is pleasantly confused. He is sitting up in his chair eating breakfast at time of rounds. Functional Status: Reports: Pain Controlled, Tolerating Diet, Ambulating. Denies: Urinating (Howard catheter), New Symptoms - Review of Systems General: Reports: No Symptoms Pulmonary: Reports: No Symptoms Cardiovascular: Reports: Edema Gastrointestinal: Reports: No Symptoms. Denies: Abdominal Pain, Decreased Appetite, Diarrhea, Nausea, Vomiting Genitourinary: Reports: Other (Howard). Denies: Hematuria Neurological: Reports: Confusion Psychiatric: Reports: Confusion - Patient Data Vitals - Most Recent: Last Vital Signs Temp 98.6 F 06/11/17 07:34 Pulse 70 06/11/17 07:34 Resp 18 06/11/17 07:34 BP 119/54 L 06/11/17 07:34 Pulse Ox 93 L 06/11/17 07:34 Weight - Most Recent: 172 lb 3.2 oz I&O - Last 24 hours: Intake & Output 06/10/17 06/11/17 06/11/17 22:59 06:59 14:59 Intake Total 1520 Output Total 1850 300 Balance -330 -300 Med Orders - Current: Current Medications Acetaminophen (Tylenol) 650 mg PO Q4H PRN PRN Reason: Pain (Mild 1-3)/fever Last Admin: 06/10/17 07:31 Dose: 650 mg Amlodipine Besylate (Norvasc) 5 mg PO DAILY [facility] Last Admin: 06/11/17 07:49 Dose: 5 mg Aspirin (Halfprin) 81 mg PO DAILY [facility] Last Admin: 06/11/17 07:49 Dose: 81 mg Atenolol (Tenormin) 25 mg PO DAILY [facility] Last Admin: 06/11/17 07:49 Dose: 25 mg Ceftriaxone Sodium (Rocephin) 1 gm IVPUSH Q24H [facility] Last Admin: 06/10/17 19:30 Dose: 1 gm Losartan Potassium (Cozaar) 50 mg PO DAILY [facility] Last Admin: 06/11/17 07:49 Dose: 50 mg Magnesium Hydroxide (Milk Of Magnesia) 30 ml PO Q12H PRN PRN Reason: Constipation Ptom Latanoprost (Opht 0.005% Laurie) 0 each EYEBOTH BEDTIME [facility] Last Admin: 06/10/17 19:28 Dose: 1 each Ptom Levalbuterol 45 Mcg/Act 2 each INH Q4H PRN PRN Reason: SHORTNESS OF BREATH Ondansetron HCl (Zofran) 4 mg IV Q6H PRN PRN Reason: Nausea/Vomiting Tamsulosin HCl (Flomax) 0.4 mg PO BEDTIME [facility] Last Admin: 06/10/17 19:27 Dose: 0.4 mg Temazepam (Restoril) 15 mg PO BEDTIME PRN PRN Reason: Sleep Torsemide (Demadex) 20 mg PO DAILY [facility] Last Admin: 06/11/17 07:49 Dose: 20 mg - Exam Quality Assessment: Reports: Urine Catheter General: Reports: Alert, Oriented Neck: Reports: Supple Lungs: Reports: Clear to Auscultation, Normal Respiratory Effort, Decreased Breath Sounds Cardiovascular: Reports: Regular Rate, Regular Rhythm GI/Abdominal Exam: Normal Bowel Sounds, Soft, Non-Tender, No Organomegaly, No Distention, No Abnormal Bruit, No Mass, Pelvis Stable Back Exam: Reports: Normal Inspection, Full Range of Motion Neurological: Reports: No New Focal Deficit Psy/Mental Status: Reports: Alert, Normal Affect, Normal Mood *Q Meaningful Use (DIS) - VTE *Q VTE Criteria *Q: - Stroke *Q Stroke Criteria *Q: - AMI *Q AMI Criteria *Q:
== END 2017-06-11 10:20 | disposition home or self-care (01) | DRG 948 ==
LOC: CC.MS 10:30
PROVIDERS: ADMIT General Practice; ATTEND General Practice
DX: R53.1 Weakness (principal); N17.9 Acute kidney failure, unspecified; K56.7 Ileus, unspecified; N32.0 Bladder-neck obstruction; I10 Essential (primary) hypertension; R79.1 Abnormal coagulation profile; D72.829 Elevated white blood cell count, unspecified; I88.0 Nonspecific mesenteric lymphadenitis; Z51.5 Encounter for palliative care; Z93.6 Other artificial openings of urinary tract status; Z88.0 Allergy status to penicillin; Z79.82 Long term (current) use of aspirin; Z79.899 Other long term (current) drug therapy
CPT/HCPCS: 36415; 51702; 80048; 82270; 85025; 86140; 97110-GP; A9270-GY; J0696

== ENCOUNTER 2018-03-06 16:14 | Observation (INO) | payer MEDICARE, OTHER ==
--- NOTE | 2018-03-06 17:55 | EDM.PDOC ---
ED HPI GENERAL MEDICAL PROBLEM - General Chief Complaint: Genitourinary Problem Stated Complaint: blood clots in urine Time Seen by Provider: 03/06/18 16:15 Source of Information: Reports: Patient, Family History Limitations: Reports: Altered Mental Status (dementia) - History of Present Illness INITIAL COMMENTS - FREE TEXT/NARRATIVE: Rolando is an 87 yo male who presents to the ED, accompanied by his daughter, with concerns of hematuria from recent catheter exchange. He has an indwelling catheter and home health was at his house today to change out his catheter. She noticed no urinary output initially and blood around the head of the penis. She brought him into the ED and daughter, who is a nurse at this facility and POA, is present. She states this has happened to him in the past and he did well with conservative treatment. He has an enlarged prostate and feels she likely nicked the prostate when advancing the catheter. He is not on any anticoagulation besides aspirin. Currently he is not a surgical candidate as he needs a heart valve replaced. Rolando denies any discomfort. Home health nurse tried irrigating the catheter. Daughter states he lives at home alone and she does typically see him on a daily basis. Last time this happened she admits they put him on Flomax and Ciprofloxacin, which he did fine with and the clots went away. - Related Data Allergies Allergy/AdvReac Type Severity Reaction Status Date / Time Penicillins Allergy Itching Verified 03/06/18 16:24 Home Meds: Home Meds Aspirin [Adult Low Dose Aspirin EC] 81 mg PO DAILY 05/28/17 [History] Atenolol 25 mg PO DAILY 05/28/17 [History] Latanoprost 1 drop EYEBOTH BEDTIME 05/28/17 [History] Levalbuterol Tartrate [Xopenex HFA] 2 puff INH ASDIRECTED PRN 05/28/17 [History] Losartan Potassium 50 mg PO DAILY 05/28/17 [History] amLODIPine Besylate [Amlodipine Besylate] 5 mg PO DAILY 05/28/17 [History] Cholecalciferol (Vitamin D3) [Vitamin D3] 5,000 unit PO DAILY 03/06/18 [History] Magnesium 250 mg PO DAILY 03/06/18 [History] Past Medical History HEENT History: Reports: Allergic Rhinitis, Glaucoma Cardiovascular History: Reports: High Cholesterol, Hypertension, Other (See Below) Other Cardiovascular History: leaky valve Respiratory History: Reports: Other (See Below) Other Respiratory History: Reactive Airway Disease Genitourinary History: Reports: UTI, Recurrent Musculoskeletal History: Reports: Arthritis, Osteoarthritis Psychiatric History: Reports: Other (See Below) Other Psychiatric History: Confusion Endocrine/Metabolic History: Reports: Vitamin D Deficiency Hematologic History: Reports: Anemia Oncologic (Cancer) History: Reports: Other (See Below) Other Oncologic History: Chronic Lymphocytic Leukemia - Past Surgical History Musculoskeletal Surgical History: Reports: Knee Replacement Social & Family History - Family History Family Medical History: Noncontributory - Tobacco Use Smoking Status *Q: Never Smoker - Caffeine Use Caffeine Use: Reports: None - Recreational Drug Use Recreational Drug Use: No ED ROS GENERAL - Review of Systems Review Of Systems: Unable To Obtain ED EXAM, RENAL/ - Physical Exam Exam: See Below Exam Limited By: Altered Mental Status General Appearance: Alert, No Apparent Distress Head: Atraumatic, Normocephalic Respiratory/Chest: No Respiratory Distress, Lungs Clear, No Accessory Muscle Use Cardiovascular: Regular Rate, Rhythm, Systolic Murmur GI/Abdominal: Normal Bowel Sounds, Soft, Non-Tender, No Organomegaly (Male) Exam: Other (foloey catheter in place with blood clot noted in catheter. ). No: Suprapubic Fullness Neurological: Alert Skin Exam: Warm, Dry, Intact, No Rash Course - Vital Signs Last Recorded V/S: Last Vital Signs Temp 96.2 F 03/06/18 16:18 Pulse 56 L 03/06/18 16:18 Resp 16 03/06/18 16:18 BP 151/73 H 03/06/18 16:18 Pulse Ox 97 03/06/18 16:18 - Orders/Labs/Meds Orders: Active Orders 24 hr Category Date Time Status Patient Status Manage Transfer [TRANSFER] Routine ADT 03/06/18 17:33 Ordered Resuscitation Status Routine Resus Stat 03/06/18 17:34 Ordered - Re-Assessments/Exams Free Text/Narrative Re-Assessment/Exam: ED nurses were able to irrigate the catheter with moderate amount of clot removal. Discussed treatment with daughter and elected to admit for observation and clemente catheter irrigation as needed. Departure - Departure Time of Disposition: 17:40 Disposition: Refer to Observation Condition: Good Clinical Impression: Gross hematuria Complication of Clemente catheter Qualifiers: Encounter type: initial encounter Qualified Code(s): T83.9XXA - Unspecified complication of genitourinary prosthetic device, implant and graft, initial encounter - Discharge Information Referrals: Drew Moore MD [Ordering Only Provider] - - Problem List & Annotations (1) Gross hematuria SNOMED Code(s): 697359495 Code(s): R31.0 - GROSS HEMATURIA Status: Acute Current Visit: Yes Annotation/Comment:: Resolved (2) Complication of Clemente catheter SNOMED Code(s): 335920722 Code(s): T83.9XXA - UNSP COMPLICATION OF GENITOURINARY PROSTH DEV/GRFT, INIT Status: Acute Current Visit: Yes Qualifiers: Encounter type: initial encounter Qualified Code(s): T83.9XXA - Unspecified complication of genitourinary prosthetic device, implant and graft, initial encounter - My Orders Last 24 Hours: My Active Orders 03/06/18 17:33 Patient Status Manage Transfer [TRANSFER] Routine 03/06/18 17:34 Resuscitation Status Routine - Assessment/Plan Admission H&P: Please use this note as an admission H&P Last 24 Hours: My Active Orders 03/06/18 17:33 Patient Status Manage Transfer [TRANSFER] Routine 03/06/18 17:34 Resuscitation Status Routine Plan: Initially in ED, nurse was able to irrigate with moderate amount of blood clots removed via catheter. Will admit to observation for irrigation as needed. Discussed Rolando's condition with POA (daughter, who is present) and agreed with admission. Elected to not consult with urology per her request as he is not a surgical candidate. Will order IV Lovenox and Flomax orally. D/t history of minimal oral fluid intake will slowly give IV fluids at 60ml/hr.
[2018-03-06] MEDS ORDERED: Non-Formulary Medication 1 Each (Levalbuterol Tartrate [Xopenex Hfa] 2 PUFF) INH PRN (18:07)
[2018-03-06] MEDS ORDERED: Docusate Sodium 100 MG Cap PO PRN (18:07)
[2018-03-06] MEDS ORDERED: Acetaminophen 325 MG Tab PO PRN (18:07)
[2018-03-06] MEDS ORDERED: Levofloxacin/Dextrose 5%-Water 500 MG in Premix Bag 1 BAG IV SCH (18:07)
[2018-03-06 19:20] LABS: CHLORIDE,CL 105 mEq/L (98-106); SODIUM,NA 141 mEq/L (136-145)
[2018-03-06] MEDS: Sodium Chloride 0.9% 1,000 ML IV SCH (20:44)
[2018-03-06] MEDS: Tamsulosin 0.4 MG Cap.ER PO SCH (20:55)
[2018-03-07] MEDS: ASPIRIN 81 MG PO SCH (08:05)
[2018-03-07] MEDS: MAGNESIUM OXIDE 250 MG PO SCH (08:05)
[2018-03-07] MEDS: ATENOLOL 25 MG PO SCH (08:06)
[2018-03-07] MEDS: LOSARTAN 50 MG PO SCH (08:06)
--- NOTE | 2018-03-07 11:40 | PCM.PN ---
- General Info Date of Service: 03/07/18 Functional Status: Reports: Pain Controlled - Review of Systems General: Denies: Fever Pulmonary: Denies: Shortness of Breath, Cough Cardiovascular: Denies: Chest Pain Gastrointestinal: Denies: Abdominal Pain Genitourinary: Reports: Other (reports mild discomfort in penis d/t indwelling urinary catheter. denies other complaints.) Musculoskeletal: Denies: Neck Pain Neurological: Denies: Dizziness, Headache - Patient Data Vitals - Most Recent: Last Vital Signs Temp 36.6 C 03/07/18 11:26 Pulse 59 L 03/07/18 11:26 Resp 18 03/07/18 11:26 BP 106/49 L 03/07/18 11:26 Pulse Ox 97 03/07/18 11:26 Weight - Most Recent: 76.476 kg I&O - Last 24 Hours: Intake & Output 03/06/18 03/07/18 03/07/18 22:59 06:59 14:59 Intake Total 750 250 120 Output Total 1400 150 Balance 750 -1150 -30 Lab Results Last 24 Hours: Laboratory Results - last 24 hr 03/06/18 03/06/18 Range/Units 07:05 18:07 WBC 10.2 H (5.0-10.0) 10^3/uL RBC 3.99 L (4.50-6.00) 10^6/uL Hgb 12.3 L (14.0-18.0) g/dL Hct 38.0 L (40.0-54.0) % MCV 95.2 H (82.0-94.0) fL MCH 30.8 (27.0-32.0) pg MCHC 32.4 L (33.0-38.0) g/dL RDW Coeff of Yeni 13.8 (11.0-15.0) % Plt Count 110 L (150-400) 10^3/uL Neut % (Auto) 41.7 (35-85) % Lymph % (Auto) 53.5 (10-55) % [place] % (Auto) 4.6 (0-16) % Eos % (Auto) 0 (0-5) % Baso % (Auto) 0.2 (0-3) % Neut # (Auto) 4.27 (1.80-7.00) 10^3/uL Lymph # (Auto) 5.47 H (1.00-4.80) 10^3/uL [place] # (Auto) 0.47 (0.00-0.80) 10^3/uL Eos # (Auto) 0.00 (0.00-0.45) 10^3/uL Baso # (Auto) 0.02 10^3/uL Sodium 141 (136-145) mEq/L Potassium 4.8 (3.5-5.0) mEq/L Chloride 105 (98-106) mEq/L Carbon Dioxide 30 (21-32) mmol/L BUN 31 H (7-18) mg/dL Creatinine 1.1 (0.7-1.3) mg/dL Est Cr Clr Drug Dosing 45.53 mL/min Estimated GFR (MDRD) > 60 (>=60) mL/min Glucose 104 H (75-99) mg/dL Calcium 8.8 (8.4-10.1) mg/dL Med Orders - Current: Current Medications Acetaminophen (Tylenol) 650 mg PO Q4H PRN PRN Reason: Pain (Mild 1-3)/fever Aspirin (Halfprin) 81 mg PO DAILY [facility] Last Admin: 03/07/18 08:05 Dose: 81 mg Atenolol (Tenormin) 25 mg PO DAILY [facility] Last Admin: 03/07/18 08:06 Dose: 25 mg Docusate Sodium (Colace) 100 mg PO BID PRN PRN Reason: Constipation Levofloxacin/Dextrose 500 mg/ (Premix) 100 mls @ 100 mls/hr IV Q24H [facility] Last Admin: 03/06/18 20:49 Dose: 100 mls/hr Sodium Chloride (Normal Saline) 1,000 mls @ 60 mls/hr IV ASDIRECTED [facility] Last Admin: 03/06/18 20:44 Dose: 60 mls/hr Latanoprost (Xalatan 0.005% Ophth Soln) 0 ml EYEBOTH BEDTIME [facility] Last Admin: 03/06/18 20:56 Dose: Not Given Magnesium Oxide (Magnesium Oxide) 250 mg PO DAILY [facility] Last Admin: 03/07/18 08:05 Dose: 250 mg Amlodipine 5mg (Own Med) 1 each PO DAILY [facility] Last Admin: 03/07/18 08:06 Dose: 1 each Losartan 50mgOwn (Med) 1 each PO DAILY [facility] Last Admin: 03/07/18 08:06 Dose: 1 each Tamsulosin HCl (Flomax) 0.4 mg PO BEDTIME [facility] Last Admin: 03/06/18 20:55 Dose: 0.4 mg Discontinued Medications Latanoprost (Xalatan 0.005% Ophth Soln) 0 ml EYEBOTH ONETIME ONE Stop: 03/07/18 07:01 Last Admin: 03/07/18 07:12 Dose: 1 drop Non-Formulary Medication (Levalbuterol Tartrate [Xopenex Hfa]) 2 puff INH ASDIRECTED PRN PRN Reason: Shortness of Breath - Exam General: Alert, No Acute Distress Lungs: Clear to Auscultation, Normal Respiratory Effort Cardiovascular: Regular Rate, Regular Rhythm, Murmurs GI/Abdominal Exam: Soft, Non-Tender (Male) Exam: Other (scant blood at urethral meatus. clemente bag has serosanguinous output. exam otherwise unremarkable.) Peripheral Pulses: 2+: Radial (L), Radial (R) Skin: Warm, Dry, Intact Psy/Mental Status: Alert, Normal Affect, Normal Mood - Problem List Review Problem List Initiated/Reviewed/Updated: Yes - Assessment Assessment:: hematuria - Plan Plan:: 03/07/18 RN reports that clemente was flowing freely until early AM today when it clotted off and required changing. Plan is to stay additional night and monitor I&O with DC tomorrow if all goes well.
[2018-03-07] MEDS: Sodium Chloride 0.9% 1,000 ML IV SCH (14:21)
[2018-03-07] MEDS ORDERED: Levofloxacin/Dextrose 5%-Water 250 MG in Premix Bag 1 BAG IV SCH (18:00)
[2018-03-07] MEDS: Tamsulosin 0.4 MG Cap.ER PO SCH (19:39)
[2018-03-08] MEDS: ASPIRIN 81 MG PO SCH (07:31)
[2018-03-08] MEDS: MAGNESIUM OXIDE 250 MG PO SCH (07:31)
[2018-03-08] MEDS: ATENOLOL 25 MG PO SCH (07:32)
[2018-03-08] MEDS: LOSARTAN 50 MG PO SCH (07:32)
--- NOTE | 2018-03-08 08:00 | PCM.DCSUM1 ---
Discharge Summary - Hospital Course HPI Initial Comments: Rolando is a pleasantly confused 87 year old male who was admitted to the hospital on 03/06/2018 for gross hematuria and Howard catheter malfunction. He has home health nurse change is catheter on a regular basis. Apparently, she was there to change it on 03/06/2018 and was unable to get urine flow after catheter change, as he had developed gross hematuria. Upon ED arrival, catheter was placed and irrigated. He did require some catheter irrigation with clot removal yesterday as well. Catheter was changed to an 18# catheter yesterday and has had good urinary output since. Urine remains slightly tea colored, but no further clots. He reports he is feeling well. Does not have any complaints today. We will restart his Flomax. He will be discharged home with home health. Patient requires home health long term for medication management, catheter changes, and monitoring given his multiple comorbidities. Patient is home bound due to his dementia and decreased activity tolerance. He is also a high fall risk. Dr. Farias will oversee home health plan of care. - Discharge Data Discharge Date: 03/08/18 Discharge Disposition: Home, W Home Health Agency 06 Condition: Good - Patient Instructions Diet: Low Sodium Activity: As Tolerated Notify Provider of: Fever, Increased Pain, Swelling and Redness, Drainage, Nausea and/or Vomiting - Discharge Plan *PRESCRIPTION DRUG MONITORING PROGRAM REVIEWED*: Not Applicable *COPY OF PRESCRIPTION DRUG MONITORING REPORT IN PATIENT LITZY: Not Applicable Prescriptions/Med Rec: Tamsulosin [Tamsulosin 24 Hr] 0.4 mg PO DAILY #90 cap.er Home Medications: Home Meds Aspirin [Adult Low Dose Aspirin EC] 81 mg PO DAILY 05/28/17 [History] Atenolol 25 mg PO DAILY 05/28/17 [History] Latanoprost 1 drop EYEBOTH BEDTIME 05/28/17 [History] Levalbuterol Tartrate [Xopenex HFA] 2 puff INH ASDIRECTED PRN 05/28/17 [History] Losartan Potassium 50 mg PO DAILY 05/28/17 [History] amLODIPine Besylate [Amlodipine Besylate] 5 mg PO DAILY 05/28/17 [History] Cholecalciferol (Vitamin D3) [Vitamin D3] 5,000 unit PO DAILY 03/06/18 [History] Magnesium 250 mg PO DAILY 03/06/18 [History] Tamsulosin [Tamsulosin 24 Hr] 0.4 mg PO DAILY #90 cap.er 03/08/18 [Rx] Forms: ED Department Discharge Referrals: Drew Moore MD [Ordering Only Provider] - - Discharge Summary/Plan Comment DC Time >30 min.: No Discharge Summary/Plan Comment: Monthly catheter changes per nurse Follow up with PCP if symptoms worsen - General Info Date of Service: 03/08/18 Subjective Update: Patient reports he "has no great aches and pains today." Nursing report patient has had good urinary output. No complaints from nursing staff. Functional Status: Reports: Pain Controlled, Tolerating Diet, Ambulating, Urinating (Howard catheter). Denies: New Symptoms - Review of Systems General: Reports: No Symptoms, Weakness HEENT: Reports: No Symptoms Pulmonary: Reports: No Symptoms Cardiovascular: Reports: No Symptoms Gastrointestinal: Reports: No Symptoms Genitourinary: Reports: No Symptoms Musculoskeletal: Reports: No Symptoms Neurological: Reports: Confusion Psychiatric: Reports: No Symptoms - Patient Data Vitals - Most Recent: Last Vital Signs Temp 97.5 F 03/08/18 07:36 Pulse 79 03/08/18 07:36 Resp 16 03/08/18 07:36 BP 132/52 L 03/08/18 07:36 Pulse Ox 99 03/08/18 07:36 Weight - Most Recent: 168 lb 9.6 oz I&O - Last 24 hours: Intake & Output 03/07/18 03/08/18 03/08/18 22:59 06:59 14:59 Intake Total 1200 180 Output Total 800 100 Balance 400 80 Med Orders - Current: Current Medications Acetaminophen (Tylenol) 650 mg PO Q4H PRN PRN Reason: Pain (Mild 1-3)/fever Aspirin (Halfprin) 81 mg PO DAILY [facility] Last Admin: 03/08/18 07:31 Dose: 81 mg Atenolol (Tenormin) 25 mg PO DAILY [facility] Last Admin: 03/08/18 07:32 Dose: 25 mg Docusate Sodium (Colace) 100 mg PO BID PRN PRN Reason: Constipation Levofloxacin/Dextrose 250 mg/ (Premix) 50 mls @ 50 mls/hr IV Q24H [facility] Last Admin: 03/07/18 17:36 Dose: 50 mls/hr Latanoprost (Xalatan 0.005% Ophth Soln) 0 ml EYEBOTH BEDTIME [facility] Last Admin: 03/07/18 19:40 Dose: 1 drop Magnesium Oxide (Magnesium Oxide) 250 mg PO DAILY [facility] Last Admin: 03/08/18 07:31 Dose: 250 mg Amlodipine 5mg (Own Med) 1 each PO DAILY [facility] Last Admin: 03/08/18 07:31 Dose: 1 each Losartan 50mgOwn (Med) 1 each PO DAILY [facility] Last Admin: 03/08/18 07:32 Dose: 1 each Tamsulosin HCl (Flomax) 0.4 mg PO BEDTIME [facility] Last Admin: 03/07/18 19:39 Dose: 0.4 mg Discontinued Medications Levofloxacin/Dextrose 500 mg/ (Premix) 100 mls @ 100 mls/hr IV Q24H [facility] Last Admin: 03/06/18 20:49 Dose: 100 mls/hr Sodium Chloride (Normal Saline) 1,000 mls @ 60 mls/hr IV ASDIRECTED [facility] Stop: 03/07/18 19:00 Last Admin: 03/07/18 14:21 Dose: 60 mls/hr Latanoprost (Xalatan 0.005% Ophth Soln) 0 ml EYEBOTH ONETIME ONE Stop: 03/07/18 07:01 Last Admin: 03/07/18 07:12 Dose: 1 drop Non-Formulary Medication (Levalbuterol Tartrate [Xopenex Hfa]) 2 puff INH ASDIRECTED PRN PRN Reason: Shortness of Breath - Exam Quality Assessment: Reports: Urine Catheter General: Reports: Alert, No Acute Distress Neck: Reports: Supple Lungs: Reports: Clear to Auscultation, Normal Respiratory Effort Cardiovascular: Reports: Regular Rate, Regular Rhythm, Murmurs GI/Abdominal Exam: Normal Bowel Sounds, Soft, Non-Tender, No Organomegaly, No Distention, No Abnormal Bruit, No Mass, Pelvis Stable (Male) Exam: Other (catheter in place, draining) Back Exam: Reports: Normal Inspection, Full Range of Motion Neurological: Reports: No New Focal Deficit Psy/Mental Status: Reports: Alert, Normal Affect, Normal Mood
== END 2018-03-08 11:00 | disposition home health service (06) ==
LOC: CC.ED 16:14 → CC.MS 17:34 → UNDOADMOB 17:50 → CC.MS 17:50 → CC.ED 17:50
PROVIDERS: ADMIT Physician Assistant Medical; ATTEND Family Medicine
DX: T83.9XXA Unspecified complication of genitourinary prosthetic device, implant and graft, initial encounter (principal); R31.0 Gross hematuria; E78.00 Pure hypercholesterolemia, unspecified; I10 Essential (primary) hypertension; J45.909 Unspecified asthma, uncomplicated; M19.90 Unspecified osteoarthritis, unspecified site; E55.9 Vitamin D deficiency, unspecified; D64.9 Anemia, unspecified; C91.10 Chronic lymphocytic leukemia of B-cell type not having achieved remission; Z79.82 Long term (current) use of aspirin; Z79.899 Other long term (current) drug therapy; Z88.0 Allergy status to penicillin
CPT/HCPCS: 36415; 51702; 80048; 85025; 96361; 96365; 96366; 99217; 99219; 99225; 99284; A9270; G0378; J1956; J7030